=== PATIENT | male | born 2000 | race Caucasian/White ===

== ENCOUNTER 2021-01-12 19:15 | Emergency (ER) | payer BC ==
[~2021-01-12] VITALS: Ht 170.2 cm; Wt 72.6 kg
[2021-01-12 19:15] VITALS: BP_SYST 156
--- NOTE | 2021-01-12 19:15 | NUR ---
Patient to ER bed 6 to gown for evaluation. Side rails up. Report given to self. ER Dr. Santos at bedside examining patient.
--- NOTE | 2021-01-12 19:19 | NUR ---
EKG performed at BS by EMT Sherly. Physician given copy of EKG for review.
[2021-01-12 20:03] LABS: BASOPHILS % (AUTO) 0.5 % (0.0-2.0); EOSINOPHILS # (AUTO) 0.2 K/uL (0.0-0.4); EOSINOPHILS % (AUTO) 3.4 % (0.0-4.0); HEMATOCRIT 45.7 % (36-54); LYMPHOCYTES # (AUTO) 2.1 K/uL (1.0-5.5); LYMPHOCYTES % (AUTO) 34.2 % (20.5-51.5); MEAN CORPUSCULAR HEMOGLOBIN 32 pg (27-31); MEAN CORPUSCULAR HGB CONC 35 % (32-36); MEAN CORPUSCULAR VOLUME 91 fL (79.0-98.0); MONOCYTES # (AUTO) 0.4 K/uL (0.0-1.0); MONOCYTES % (AUTO) 7.5 % (1.7-9.3); NEUTROPHILS # (AUTO) 3.3 K/uL (1.8-7.7); NEUTROPHILS % (AUTO) 54.4 % (40.0-70.0); PLATELET COUNT (AUTO) 171 K/uL (130-430); RED BLOOD CELL COUNT(AUTO) 5.05 MIL/uL (4.2-6.2); RED CELL DISTRIBUTION WIDTH 12.8 % (9.0-15.0)
--- NOTE | 2021-01-12 20:12 | NUR ---
UA obtained and sent to lab.
[2021-01-12 20:18] LABS: CALCIUM 8.8 mg/dL (8.4-11.0); POTASSIUM 4.1 mmol/L (3.5-5.1)
[2021-01-12 20:21] LABS: PROTHROMBIN TIME 10.6 SECS (9.5-12.5)
[2021-01-12 20:25] LABS: ALBUMIN 4.4 g/dL (3.4-4.8); TOTAL BILIRUBIN 0.5 mg/dL (0.0-1.0)
[2021-01-12 20:32] LABS: BILIRUBIN,URINE NEGATIVE (NEGATIVE); BLOOD, URINE NEGATIVE (NEGATIVE); CLARITY/URINE CLEAR (CLEAR); COLOR,URINE YELLOW (YELLOW); GLUCOSE,URINE NEGATIVE (NEGATIVE); KETONES,URINE NEGATIVE (NEGATIVE); LEUKOCYTE ESTERASE ,URINE NEGATIVE (NEGATIVE); NITRITE, URINE NEGATIVE (NEGATIVE); PROTEIN URINE NEGATIVE (NEGATIVE); UROBILINOGEN,URINE 0.2 (0.2-1.0)
--- NOTE | 2021-01-12 20:54 | NUR ---
Patient resting quietly. No acute distress noted. Vital signs within normal range.
[2021-01-12] MEDS ORDERED: LORazepam 1 MG TABLET PO ONE (21:00)
--- NOTE | 2021-01-12 21:09 | NUR ---
Medicated per MD orders. Will cont to monitor and observe for any adverse reaction. Bed to low position sr up, continue to monitor.
[2021-01-12] MEDS ORDERED: LORazepam 1 MG TABLET ONE (21:10)
[2021-01-12] MEDS ORDERED: LORA-259 PO (22:08)
[2021-01-12 22:30] VITALS: BP_SYST 121
--- NOTE | 2021-01-12 22:30 | NUR ---
Patient given written and verbal discharge instructions and verbalizes understanding. ER MD discussed with patient the results and treatment provided. Patient in stable condition. ID arm band removed. Rx of Ativan given. Patient educated on pain management and to follow up with PMD. Pain Scale 0/10 Opportunity for questions provided and answered. Medication side effect fact sheet provided.
== END 2021-01-12 22:30 | disposition home or self-care (01) ==
LOC: SED 19:15
DX: F41.9 Anxiety disorder, unspecified (principal); R07.9 Chest pain, unspecified
CPT/HCPCS: 36415; 71045; 80053; 81003; 82550; 83880; 84484; 85025; 85379; 85610-TC; 93005; 99285

== ENCOUNTER 2023-09-12 12:11 | Emergency (ER) | payer BC ==
[~2023-09-12] VITALS: Ht 172.7 cm; Wt 77.1 kg
[2023-09-12 12:19] VITALS: BP_SYST 129; PULSE 130; RESP 20; TEMP 101.1; O2SAT 96
[2023-09-12] MEDS ORDERED: ACETAMINOPHEN 500 MG TABLET PO ONE (12:30)
[2023-09-12] MEDS ORDERED: KETOROLAC TROMETHAMINE 30 MG VIAL IM ONE (12:30)
[2023-09-12] MEDS ORDERED: cefTRIAXone 1 GM VIAL IM ONE (13:00)
[2023-09-12] MEDS ORDERED: DOXY100T2 PO (13:01)
[2023-09-12 13:02] LABS: BILIRUBIN,URINE NEGATIVE (NEGATIVE); BLOOD, URINE NEGATIVE (NEGATIVE); CLARITY/URINE CLEAR (CLEAR); COLOR,URINE YELLOW (YELLOW); GLUCOSE,URINE NEGATIVE (NEGATIVE); KETONES,URINE NEGATIVE (NEGATIVE); LEUKOCYTE ESTERASE ,URINE NEGATIVE (NEGATIVE); NITRITE, URINE NEGATIVE (NEGATIVE); PROTEIN URINE 1+ (NEGATIVE); UROBILINOGEN,URINE 0.2 (0.2-1.0)
[2023-09-12 13:23] LABS: BACTERIA,URINE None Seen /HPF (None Seen); RBC,URINE 0-3 /HPF (0-3); WBC,URINE 0-3 /HPF (0-3)
[2023-09-12] MEDS ORDERED: cefTRIAXone 1 GM in D5W 50 ML IV ONE (13:45)
[2023-09-12 13:51] LABS: BASOPHILS % (AUTO) 0.2 % (0.0-2.0); EOSINOPHILS % (AUTO) 0.1 % (0.0-4.0); HEMATOCRIT 48.4 % (36-54); HEMOGLOBIN 17.2 g/dL (14.0-18.0); LYMPHOCYTES # (AUTO) 1.1 K/uL (1.0-5.5); LYMPHOCYTES % (AUTO) 27.2 % (20.5-51.5); MEAN CORPUSCULAR HEMOGLOBIN 33 pg (27-31); MEAN CORPUSCULAR HGB CONC 36 % (32-36); MEAN CORPUSCULAR VOLUME 91 fL (79.0-98.0); MONOCYTES # (AUTO) 0.5 K/uL (0.0-1.0); MONOCYTES % (AUTO) 12.5 % (1.7-9.3); NEUTROPHILS # (AUTO) 2.4 K/uL (1.8-7.7); PLATELET COUNT (AUTO) 80 K/uL (130-430); RED BLOOD CELL COUNT(AUTO) 5.31 MIL/uL (4.2-6.2); RED CELL DISTRIBUTION WIDTH 12.8 % (9.0-15.0)
[2023-09-12 13:54] LABS: ANION GAP 10 (5-15); CALCIUM 8.9 mg/dL (8.4-11.0); CARBON DIOXIDE 29 mmol/L (23-29); CHLORIDE 102 mmol/L (98-107); CREATININE 1.23 mg/dL (0.55-1.30); GFR AFRICAN AMERICAN 94 mL/min (>90); GLUCOSE 102 mg/dL (74-106); POTASSIUM 4.1 mmol/L (3.5-5.1); SODIUM SERUM 141 mmol/L (136-145); UREA NITROGEN, BLOOD 11 mg/dL (8-21)
[2023-09-12 13:58] LABS: ALANINE AMINOTRANSFERASE 41 U/L (12-78); ASPARTATE AMINOTRANSFERASE 27 U/L (10-37); BILIRUBIN,DIRECT 0.2 mg/dL (0.0-0.3); LIPASE 36 U/L (16-77); TOTAL BILIRUBIN 0.8 mg/dL (0.0-1.0); TOTAL PROTEIN, SERUM 7.3 g/dL (6.4-8.3)
[2023-09-12 14:24] LABS: ALCOHOL, BLOOD < 3 mg/dL (<10); GFR NON AFRICAN-AMERICAN 78 mL/min (>90)
[2023-09-12 15:01] VITALS: BP_SYST 129; PULSE 130; RESP 20; TEMP 98.9; O2SAT 96
== END 2023-09-12 14:56 | disposition home or self-care (01) ==
LOC: SED 12:11
DX: R50.9 Fever, unspecified (principal); R21 Rash and other nonspecific skin eruption; M79.10 Myalgia, unspecified site; Z20.6 Contact with and (suspected) exposure to human immunodeficiency virus [HIV]; Z79.899 Other long term (current) drug therapy
CPT/HCPCS: 99285; 74176; 96365; 71045; 86592; 80076; 80048; 83690; 85025; 36415; 76376; 96372; 87491; 81000; 81001; 81015; G0482; J0696; J1885